=== PATIENT | male | born 1990 | race Caucasian/White ===

== ENCOUNTER 2018-12-16 23:54 | Emergency (ER) | payer OTHER ==
[2018-12-17 00:03] VITALS: BP 124/78
--- NOTE | 2018-12-17 00:09 | EDPHY ---
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 Patient reports knowing the owners of the dog. He is ambulatory without pain, has no active bleeding or open wound requiring sutures. Tetanus is up-to-date. No evidence of tendon injury, fracture, deep tissue contusion, compartment syndrome, or foreign body. Augmentin started in the emergency department and prescription given. Follow up with aurelia Soliz. Warning signs return to ED sooner discussed discharge. DIFFERENTIAL DIAGNOSIS: includes but not limited to laceration of tendon or vascular structure, underlying fracture, laceration with retained FB ED PROCEDURES: Lacerations do not require sutures or for Steri-Strips. No opened bleeding wounds. Wounds were cleaned and patient was given an initial dose of antibiotics in the ED. 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 Patient states "I know who the owners of the dog are but they were drunk and I did not contact animal Control". Patient's tetanus is up-to-date. He was bitten on the top of the right leg and a small bite to the right 3rd finger. Full range of motion of the finger. No active bleeding or open wound. He is able to walk without difficulty. 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 Neurological: Alert and oriented x 3 Skin: Superficial abrasions to right upper leg, no active bleeding, very small puncture wound to right 3rd finger over PIP joint with intact range of motion Musculoskeletal: Full range of motion of hands and bilateral lower extremities MEDICAL DECISION MAKING: Patient was seen independently. Secondary supervising physician at time of evaluation was Dr. Gibson. Diagnosis: Dog bite. New, requires workup Summary: See assessment and plan for summary of ED visit Patient Progress stable for discharge. - History Smoking Status: Never smoked - Objective Vital Signs: Initial Vital Signs Temperature (C) 36.7 C 12/16/18 23:59 Heart Rate 95 12/16/18 23:59 Respiratory Rate 18 12/16/18 23:59 Blood Pressure 124/78 H 12/16/18 23:59 O2 Sat (%) 94 12/16/18 23:59 O2 Delivery Mode Room Air Allergies/Adverse Reactions: No Known Allergies Allergy (Unverified 12/16/18 23:59) Home Medications: Medication Instructions Recorded Amoxicillin/Clavulanate Pot 875 mg PO BID #14 tab 12/17/18 [Augmentin 875 mg tab] Departure - Departure Disposition: Home, Routine, Self-Care Clinical Impression: Dog bite Qualifiers: Encounter type: initial encounter Qualified Code(s): W54.0XXA - Bitten by dog, initial encounter Condition: Good Instructions: Animal Bite (ED) Additional Instructions: DISCHARGE INSTRUCTIONS FROM YOUR DOCTOR Thank you for visiting our emergency department today. You were treated by a physician assistant finance manager today and your case was reviewed with our ED Attending physician. Please keep in mind that discharge from the emergency department does not mean that there is nothing wrong - it simply means that we have not identified an emergency condition that requires further evaluation or treatment in the hospital. You should always plan to follow up with primary care for re- evaluation of your condition in the next 2-3 days. If you have been referred to a specialist, please call as soon as possible (today or tomorrow) to schedule your follow up appointment at the appropriate time. KEEP WOUNDS CLEAN WITH SOAP AND WATER. APPLY ANTIBIOTIC OINTMENT. ICE SORE AREAS. TAKE ANTIBIOTICS DIRECTED. FOLLOW UP WITH PRIMARY CARE OR WORKMEN COMP. RETURN TO THE EMERGENCY DEPARTMENT FOR INCREASED PAIN, SWELLING, FEVER, PURULENT DISCHARGE, OR ANY OTHER CONCERNS FOR INFECTION People present with illnesses and injuries in different ways, and it is always possible that we have missed something. You may always return for re-evaluation if symptoms worsen or if they are not improving or if you develop new/different symptoms. Again, thank you for choosing our emergency department. We hope that you feel better. Referrals: Johnathon Childs DO [Doctor of Osteopathy] - As per Instructions Prescriptions: Amoxicillin/Clavulanate Pot [Augmentin 875 mg tab] 875 mg PO BID #14 tab
[2018-12-17] MEDS ORDERED: AMOXICILLIN/CLAVULANATE POT 875/125 MG TAB PO ONE (00:11)
== END 2018-12-17 00:27 | disposition home or self-care (01) ==
DX: S61.232A Puncture wound without foreign body of right middle finger without damage to nail, initial encounter (principal); S80.811A Abrasion, right lower leg, initial encounter; W54.0XXA Bitten by dog, initial encounter; Y92.009 Unspecified place in unspecified non-institutional (private) residence as the place of occurrence of the external cause